=== PATIENT | male | born 1980 | race African-American/Black ===

== ENCOUNTER 2023-01-29 18:01 | Emergency (ER) | payer SELFPAY ==
[~2023-01-29] VITALS: Ht 180.3 cm; Wt 86.0 kg
[2023-01-29 18:16] VITALS: TEMP 98.2; O2SAT 100
[2023-01-29] MEDS ORDERED: TETANUS, DIPHTHERIA, PERTUSSIS VAC/PF 0.5ML (>10YR OLD) IM ONE (19:00)
[2023-01-29 20:36] VITALS: BP 122/91; PULSE 100; RESP 20
== END 2023-01-29 22:57 | disposition home or self-care (01) ==
LOC: ER 18:01
DX: S00.03XA Contusion of scalp, initial encounter (principal); F10.129 Alcohol abuse with intoxication, unspecified; I10 Essential (primary) hypertension; X58.XXXA Exposure to other specified factors, initial encounter; Y93.89 Activity, other specified; Y92.89 Other specified places as the place of occurrence of the external cause; Y99.8 Other external cause status; Y90.9 Presence of alcohol in blood, level not specified
CPT/HCPCS: 90471; 90715; 99285